=== PATIENT | female | born 1945 | race Caucasian/White ===

== ENCOUNTER 2016-08-20 10:52 | Emergency (ER) | payer MEDICARE, OTHER ==
--- NOTE | 2016-08-24 11:27 | ER ---
ADMIT: 08/20/2016 RM/LOC: ER [facility] MR#: [id number] [address] [id number] [address] [place] [address] Emergency Room Report SEX: F AGE: 71 : 1945 DATE: 08/20/2016 ADDENDUM: CHIEF COMPLAINT: Fall. HISTORY OF PRESENT ILLNESS: This 71-year-old who was walking across the street, there was a crack in the street that she said she knew about, but her foot got caught on it. She fell forward and the left side of her face took most of the impact. CT of her head and facial bones were done. 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 She said she thinks she knows about it but she will talk to Dr. Bird about to see if she needs another MRI. CLINICAL IMPRESSION: 1. Facial contusion. 2. Left calcified brain lesion. MICHELLE Daniel / Pablito Lopes MD / jeaniel JOB #: [id number] CC: Pablito Lopes MD, Attending Physician UNKNOWN, Family Physician
== END 2016-08-20 12:40 | disposition home or self-care (01) ==
LOC: ER 10:52
DX: S00.83XA Contusion of other part of head, initial encounter (principal); G93.89 Other specified disorders of brain; Z23 Encounter for immunization; Z90.710 Acquired absence of both cervix and uterus; Z79.899 Other long term (current) drug therapy; W18.09XA Striking against other object with subsequent fall, initial encounter; Y92.410 Unspecified street and highway as the place of occurrence of the external cause

== ENCOUNTER → 2016-09-09 | Outpatient (CLI) | payer MEDICARE, OTHER | END | disposition home or self-care (01) | LOC: RAD.S 12:46 | DX: Z12.31 Encounter for screening mammogram for malignant neoplasm of breast (principal); R92.1 Mammographic calcification found on diagnostic imaging of breast ==